=== PATIENT | male | born 1950 ===

== ENCOUNTER 2016-09-24 21:11 | Emergency (ER) | payer OTHER ==
[~2016-09-24] VITALS: Ht 177.8 cm; Wt 106.6 kg
[2016-09-24 21:39] VITALS: BP 151/91
--- NOTE | 2016-09-24 22:25 | RADIOLOGY REPORT ---
EXAMINATION: XR KNEE, LEFT CLINICAL INFORMATION: Left knee twisted. [place] a pop. COMPARISON: None TECHNIQUE: Four views of the left knee. FINDINGS: No fracture. No dislocation. No joint effusion. IMPRESSION: Normal left knee.
--- NOTE | 2016-09-24 23:17 | ED UPPER/LOWER EXTREMITY COMPL ---
History of Present Illness General Chief Complaint: Lower Extremity Problems Stated Complaint: PT TWISTED HIS LT KNEE Source: patient Exam Limitations: no limitations Vital Signs & Intake/Output Vital Signs & Intake/Output Vital Signs Date Time Temp Pulse Resp B/P B/P Pulse O2 O2 Flow FiO2 Mean Ox Delivery Rate 09/24 2324 97.5 09/24 2139 97.5 66 18 151/91 96 Room Air ED Intake and Output 09/25 0000 09/24 1200 Intake Total 0 Output Total Balance 0 Intake, Oral 0 Patient 235 lb Weight Allergies Coded Allergies: No Known Allergies (09/25/16) Reconcile Medications Ibuprofen 600 MG TABLET 1 TAB PO TID PRN PAIN with food Triage Note: PT STATES THAT HE WAS WALKING UP STAIRS AND HE FELT HIS L KNEE TWIST, UNABLE BARE WEIGHT. Triage Nurses Notes Reviewed? yes Onset: Abrupt Duration: hour(s): Timing: single episode today Severity: moderate Pain/Injury Location: Left: Knee. Method of Injury: twisted Modifying Factors: Improves With: rest. Worsens With: movement. Associated Symptoms: swelling HPI: 65-year-old gentleman in prior good health presents with left knee pain. He states that he was walking up the bleachers at his granddaughter's high school graduation. He felt a tear and a pop. He felt instant pain and swelling. He comes today for further evaluation and to consider or so referral. Past History Travel History Traveled to [place] past 21 day No Medical History Any Pertinent Medical History? see below for history Neurological: NONE EENT: NONE Cardiovascular: hypertension Respiratory: NONE Gastrointestinal: NONE Hepatic: NONE Renal: NONE Musculoskeletal: NONE Psychiatric: NONE Endocrine: hypothyroidism Blood Disorders: NONE Cancer(s): NONE IT ADMIN/Reproductive: NONE Surgical History Surgical History: unobtainable, non-contributory Psychosocial History What is your primary language French Tobacco Use: Never used ETOH Use: denies use Illicit Drug Use: denies illicit drug use Family History Hx Contributory? No Review of Systems Review of Systems Constitutional: Reports: no symptoms. EENTM: Reports: no symptoms. Respiratory: Reports: no symptoms. Cardiovascular: Reports: no symptoms. Gastrointestinal/Abdominal: Reports: no symptoms. Genitourinary: Reports: no symptoms. Musculoskeletal: Reports: no symptoms. Skin: Reports: no symptoms. Neurological/Psychological: Reports: no symptoms. Hematologic/Endocrine: Reports: no symptoms. Immunological: Reports: no symptoms. All Other Systems: Reviewed and Negative Physical Exam Physical Exam General Appearance: well developed/nourished, mild distress Head: atraumatic Eyes: Bilateral: PERRL, EOMI. Ears, Nose, Throat: normal pharynx, normal ENT inspection, hearing grossly normal Neck: normal inspection, supple Cardiovascular/Respiratory: regular rate/rhythm Back: normal inspection Leg Left: left knee with ligaments intact. However, there is mild pain elicited with anterior drawer test. Small effusion of the knee. Otherwise nonfocal musculoskeletal pain to exam. Skin: intact, normal color, warm/dry Lymphatic: no anterior cervical todd Progress Differential Diagnosis: contusion, dislocation, sprain, tendon injury Plan of Care: Supportive measures discussed. Patient's left knee place an Mark bandage. Patient given crutches. Diagnostic Imaging: Viewed by Me: Radiology Read. Discussed w/RAD: Radiology Read. Radiology Impression: left knee... no fx... full report below. Comments: PATIENT: KEE GAN PRESENT AGE: 65 PATIENT ACCOUNT NO: [id number] : 48 LOCATION: [facility] ([facility] ORDERING PHYSICIAN: DENNISE VICTOR DO SERVICE DATE: 09/24/16 EXAM TYPE: RAD - XRY-KNEE COMPLETE LEFT EXAMINATION: XR KNEE, LEFT CLINICAL INFORMATION: Left knee twisted. [place] a pop. COMPARISON: None TECHNIQUE: Four views of the left knee. FINDINGS: No fracture. No dislocation. No joint effusion. IMPRESSION: Normal left knee. DICTATED BY: RIYA RANDLE MD DATE/TIME DICTATED:09/24/162221 DIRECTOR OF ANALYTICAL DEVELOPMENT:RYANNE DATE/TIME TRANSCRIBED:09/24/162221 CONFIDENTIAL, DO NOT COPY WITHOUT APPROPRIATE AUTHORIZATION. <Electronically signed in Other Vendor System> SIGNED BY: RIYA RANDLE MD 09/24/162224 Departure Departure Disposition: HOME OR SELF CARE Condition: Stable Clinical Impression Primary Impression: Left knee sprain Referrals: BECKY MURCIA,TOREY Red (PCP/Family) Departure Forms: Customer Survey General Discharge Information Prescriptions: Current Visit Scripts Ibuprofen 1 TAB PO TID PRN PAIN #30 TAB with food
[2016-09-24] MEDS ORDERED: IBUPROFEN600 M1 PO (23:31)
== END 2016-09-24 23:50 ==
LOC: ERH 21:11
DX: S83.92XA Sprain of unspecified site of left knee, initial encounter (principal); X58.XXXA Exposure to other specified factors, initial encounter; Y93.01 Activity, walking, marching and hiking; Y92.89 Other specified places as the place of occurrence of the external cause
CPT/HCPCS: 73562-LT